=== PATIENT | male | born 1950 | race Caucasian/White ===

== ENCOUNTER 2016-03-09 23:26 | Inpatient (IN) | payer MEDICARE ==
[~2016-03-09] VITALS: Ht 177.8 cm; Wt 126.4 kg
[2016-03-10] VITALS (18 sets, daily range): BP systolic 108–140; BP diastolic 72–99; Ht 177.8 cm; Wt 126.4 kg
[2016-03-10 00:48] LABS: HEMOGLOBIN 12.8 g/dL (13.5-17.5); MCH 27.6 pg (26.0-34.0); MCHC 31.2 g/dL (31.0-37.0); MCV 88.4 fL (80.0-100.0); MEAN PLATELET VOLUME 10.4 fL (7.4-10.4); PLATELET COUNT 315 10x3/uL (130-400); RBC 4.64 10x6/uL (4.20-6.10); RDW 17.5 % (11.5-14.5); WBC 27.4 10x3/uL (4.8-10.8)
[2016-03-10 01:03] LABS: APPEARANCE TURBID (CLEAR); BILIRUBIN NEGATIVE (NEGATIVE); COLOR YELLOW (YELLOW); GLUCOSE NEGATIVE (NEGATIVE); KETONE NEGATIVE (NEGATIVE); LEUKOCYTE ESTERASE 2+ (NEGATIVE); NITRITE NEGATIVE (NEGATIVE); PROTEIN 2+ mg/dL (NEGATIVE); SPECIFIC GRAVITY 1.015 (1.005-1.020); UROBILINOGEN NORMAL (NORMAL)
[2016-03-10 01:11] LABS: ALBUMIN 2.2 g/dL (3.4-5.0); ANION GAP 10.9 mmol/L (8-16); BILIRUBIN - TOTAL 0.67 mg/dL (0.2-1.3); CARBON DIOXIDE 30.4 mmol/L (21.0-32.0); CREATININE - SERUM 1.6 mg/dL (0.6-1.3); MAGNESIUM - SERUM 1.2 mg/dL (1.8-2.4); POTASSIUM - SERUM 4.3 mmol/L (3.5-5.1); PROTEIN - SERUM 6.7 g/dL (6.4-8.2); TROPONIN-I 0.029 ng/mL (0.000-0.060)
[2016-03-10 01:12] LABS: UDS - AMPHET NEGATIVE QUAL (NEGATIVE); UDS - BARB NEGATIVE QUAL (NEGATIVE); UDS - BENZO NEGATIVE QUAL (NEGATIVE); UDS - COCAINE NEGATIVE QUAL (NEGATIVE); UDS - METH NEGATIVE QUAL (NEGATIVE); UDS - OPIATE NEGATIVE QUAL (NEGATIVE); UDS - PCP NEGATIVE QUAL (NEGATIVE); UDS - THC NEGATIVE QUAL (NEGATIVE)
[2016-03-10 01:15] LABS: BACTERIA MANY /hpf (NONE SEEN); WHITE CELLS - URINE >50 /hpf (0-5)
[2016-03-10 01:16] LABS: GRANULAR CAST 0-5 /lpf (NONE SEEN); HYALINE CAST OCC /lpf (NONE SEEN)
[2016-03-10 01:18] LABS: CALCIUM 12.8 mg/dL (8.5-10.1)
[2016-03-10 01:26] LABS: LYMPHOCYTES 8 % (15-50); MONOCYTES 4 % (2-11); NEUTROPHILS 78 % (40-80); PLATELET ESTIMATE NORMAL
[2016-03-10] MEDS ORDERED: KLOR-CON M2020 MEQ PO (02:37)
[2016-03-10] MEDS ORDERED: DEMADEX20 MG PO (02:37)
[2016-03-10] MEDS ORDERED: ZYLOPRIM100 MG PO (02:38)
[2016-03-10] MEDS ORDERED: CARAFATE1 G PO (02:39)
[2016-03-10] MEDS ORDERED: NUEDEXTA 20-101 EACH PO (02:40)
[2016-03-10] MEDS ORDERED: LIPITOR10 MG PO (02:40)
[2016-03-10] MEDS ORDERED: PAXIL20 MG PO (02:41)
[2016-03-10] MEDS ORDERED: ROZEREM8 MG PO (02:41)
[2016-03-10] MEDS ORDERED: PROTONIX40 MG PO (02:42)
[2016-03-10] MEDS ORDERED: MAG-OX 400 MG400 MG PO (02:42)
[2016-03-10] MEDS ORDERED: MULTIPLE VITAMI1 TA1 PO (02:43)
[2016-03-10] MEDS ORDERED: VITAMIN D31000 UNI2 PO (02:43)
[2016-03-10] MEDS ORDERED: VITAMIN B COMPL1 TAB PO (02:43)
[2016-03-10] MEDS ORDERED: ACIDOPHILUS LAC1 CAP PO (02:44)
[2016-03-10] MEDS ORDERED: NATURAL FIBER283 G1 PO (02:44)
[2016-03-10] MEDS ORDERED: ULTRAM50 MG PO (02:45)
[2016-03-10] MEDS ORDERED: GLUCOPHAGE500 MG PO (02:45)
[2016-03-10] MEDS ORDERED: IPRAT-ALBUT 0.5-3 ML UPD (02:46)
--- NOTE | 2016-03-10 03:09 | NUR ---
PT RECIEVED. ASSESSMENT COMPLET EPER FLOW SHEET. VSS. REPOSITIONED UP IN BED PARTIAL BB ADM WILL CONTINUE TO MONITOR
--- NOTE | 2016-03-10 03:10 | NUR ---
INVESTIGATION CLERK PAGED TO RETRIEVE MEDICATIONS FROM [facility]. WILL CONTINUE TO MONITOR.
--- NOTE | 2016-03-10 05:19 | NUR ---
PT AWAKE ASKS WHERE HE IS REORIENTED THINKS ITS 1995, REORIENTED STATES UNDERSTANDING, FOLLOWS COMMANDS NO FURTHER NEW ASSESSMENTS NOTED.
--- NOTE | 2016-03-10 11:44 | NUR ---
0700 PT AWAKE ALERT AND DISORIENTED TO TIME. PT DENIES PAIN. ABLE TO OBEY COMMANDS. S1S2 NOTED, NORMAL SINUS ON MONITOR. ABDOMEN DISTENDED AND ROUND, NO BM AT THIS TIME. DUARTE CATHETER IN PLACE AND DRAINING TO GRAVITY. BILAT FEET DARK PIGMENTATION. SCDS ON LOWER EXTREMITIES BILAT. WEAKNESS IN EXTREMITIES X4. VITAL SIGNS STABLE AT THIS TIME. WILL CONTINUE TO MONITOR
--- NOTE | 2016-03-10 11:47 | NUR ---
0900 PT ABLE TO SWALLOW PO MEDS WITH SIPS OF WATER. WILL CALL TO POSSIBLY ADVANCE DIET TODAY. NO FURTHER CHANGES
--- NOTE | 2016-03-10 11:48 | NUR ---
1100 PT ABLE TO TALK AND ANSWER QUESTION. LOC APPEARS TO BE IMPROVING. WILL CONTINUE TO MONITOR AND ORIENT NEEDED.
--- NOTE | 2016-03-10 17:52 | NUR ---
1300 NO CHANGES FROM PREVIOUS ASSESSMENT. WILL CONTINUE TO MONITOR.
--- NOTE | 2016-03-10 18:17 | NUR ---
1500 PT ASLEEP AT THIS TIME. VITAL SIGNS STABLE. PACS AND PVCS NOTED ON MONITOR, SINUS RHYTHM. P WAVES NOTED.
--- NOTE | 2016-03-10 18:18 | NUR ---
1700 PT ALTERED LOC. NOT SPEAKING AT THIS TIME. NEURO CHECK COMPLETED. D DIMER ORDERED. FSBS CHECKED AND STABLE. NO DISTINGUISHABLE WEAKNESS NOTED IN EITHER SIDE.
--- NOTE | 2016-03-10 18:21 | NUR ---
1715 PT TALKING NOW AND ABLE TO FORM SENTENCES. APPEARS UPSET AND ANGRY BUT NOT COMBATIVE. DR LEIJA CALLED WITH RESULTS OF D DIMER. WILL HOLD OVERNIGHT AND REASSESS IN THE MORNING.
--- NOTE | 2016-03-10 19:15 | NUR ---
ASSESSMENT COMPLETE. S1S2. RR SHALLOW [place]NEA. RR CLEAR IN UPPER LOBES; DIMINISHED IN LOWER LOBES. PT CONFUSED; ORIENTED TO PERSON AND PLACE. DRY/CRACKING WITH DARK DISCOLORATION BILATERAL FEET. ON NC AT 2L. PERRLA; 3MM BRISK.
--- NOTE | 2016-03-10 20:25 | NUR ---
SPOKE WITH DR. LEIJA. ORDERS FOR TRANSFER.
--- NOTE | 2016-03-10 20:45 | NUR ---
COMPLETE BATH. COMPLETE LINEN CHANGE. PT RDY TO TRANSFER TO FLOOR.
--- NOTE | 2016-03-10 21:25 | NUR ---
RECEIVED TO ROOM 2226 AT THIS TIME. TRANSFERRED TO BED WITH BRIAN MAT ALARM IN PLACE AND IN WORKING ORDER. DUARTE CATHETER PATENT AND DRAINING CLEAR, YELLOW URINE TO GRAVITY. TEMP 98.4, BP 136/93, HR 102, O2 94% ON 2L VIA NC, AND RESPIRATIONS 21 EVEN AND NON LABORED. PT REMAINS CONFUSED, BUT PLEASANT. CALL LIGHT IN REACH, WILL CONTINUE WITH PLAN OF CARE.
[2016-03-11] VITALS: BP 131/76
--- NOTE | 2016-03-11 00:49 | NUR ---
SCHEDULED MEDICATIONS ADMINISTERED AT THIS TIME. PT REMAINS CONFUSED TO PLACE, TIME AND SITUATION. IV TO LEFT HAND PATENT AND PT ASSISTED WITH DRINK OF ICE WATER. BRIAN MAT ALARM ON AND IN USE. DOOR OPEN AND SCD'S ON AND IN WORKING ORDER.
[2016-03-11 04:00] VITALS: BP 134/65
--- NOTE | 2016-03-11 05:03 | NUR ---
SCHEDULED MEDICATIONS ADMINISTERED AT THIS TIME. PT REPOSITIONED ON LEFT SIDE IN THE BED AT THIS TIME. PROVIDED PT WITH CUP ICE WATER WHICH HE FINISHED AT THIS TIME. CALL LIGHT IN REACH, SCD'S AND BRIAN MAT ALARM IN USE. DUARTE CARE PROVIDED WITH SOAP AND WATER. WILL CONTINUE WITH PLAN OF CARE.
[2016-03-11 05:50] LABS: BASOPHILS 0.1 % (0.0-2.0); EOSINOPHILS 0 % (0-7); HEMATOCRIT 35.5 % (42.0-54.0); IMMATURE GRANULOCYTES 0.5 % (0-5); LYMPHOCYTES 2.3 % (15-50); MCH 27.3 pg (26.0-34.0); MCV 88.1 fL (80.0-100.0); MEAN PLATELET VOLUME 10.4 fL (7.4-10.4); NEUTROPHILS 94.1 % (40-80); PLATELET COUNT 283 10x3/uL (130-400); RBC 4.03 10x6/uL (4.20-6.10); RDW 17.5 % (11.5-14.5)
[2016-03-11 05:56] LABS: WBC 19.6 10x3/uL (4.8-10.8)
[2016-03-11 06:01] LABS: HEMOGLOBIN A1C 5.4 % (4.8-6.0)
[2016-03-11 06:15] LABS: ALBUMIN 1.8 g/dL (3.4-5.0); BILIRUBIN - TOTAL 0.33 mg/dL (0.2-1.3); CARBON DIOXIDE 28.7 mmol/L (21.0-32.0); CHOL - HDL RATIO 7.7 ratio (2.3-4.9); CREATININE - SERUM 1.2 mg/dL (0.6-1.3); LDL-HDL RATIO 4.8 ratio (1.5-3.5); MAGNESIUM - SERUM 1.3 mg/dL (1.8-2.4); PHOSPHOROUS 2.6 mg/dL (2.5-4.9); POTASSIUM - SERUM 3.7 mmol/L (3.5-5.1); THYROID STIMULATING HORMONE 0.35 uIU/mL (0.36-3.74); URIC ACID 8.8 mg/dL (2.6-7.2)
[2016-03-11 06:16] LABS: CALCIUM 12.1 mg/dL (8.5-10.1)
[2016-03-11 08:30] VITALS: BP 138/79
--- NOTE | 2016-03-11 10:08 | NUR ---
Patient Name: PATEL JACOBO Admission Status: ER Accout number: [id number] Admission Date: 03-10-2016 : 1950 Admission Diagnosis: Attending: IOANA Current LOS: 1 Anticipated DC Date: Planned Disposition: Primary Insurance: [employer] CHOICE PPO MCR ADVANT Discharge Planning Comments: CM CALLED [facility] TO DISCUSS PATIENTS PLANS AND NEEDS FOR DISCHARGE. PATIENT IS UNDER APS AT THIS TIME. PATIENT IS BEDRIDDEN PER FACILITY. PATIENTS PCP IS DR. LEIJA AND PHARMACY IS IN HOUSE. PATIENT WILL RETURN TO [facility] AT DISCHARGE. CM WILL CONTINUE TO FOLLOW PATIENT WITH D/C NEEDS AND PLANS. PCP DR. LEIJA PHARMACY IS IN HOUSE AT [facility] [phone] Consumer Studies Professor: Brianna Mota Is the patient Alert and Oriented? No 0 * PCP DR. NAPIER 0 * Pharmacy IN HOUSE AT [facility] 0 * Preadmission Environment Sales Development Representative Intermediate 0 * Facility Name [facility] 0 * ADLs Total Dependent 0 * Other Equipment FACILITY HAS EQUIPMENT NEEDED 0 * Community resources currently utilized APS/CPS 0 * Please name any agencies selected above. [phone] * Additional services required to return to the preadmission environment? Yes 0 * Can the patient safely return to the preadmission environment? Yes 0 * Has this patient been hospitalized within the prior 30 days at any hospital? No 0 Grand Total: 0
--- NOTE | 2016-03-11 11:00 | NUR ---
Received patient lying in bed, awake to call of name, oriented to name. Oxygen in place and respirations easy. IV left hand patent. No distress. Assessment complete.
[2016-03-11 11:52] VITALS: BP 112/49
--- NOTE | 2016-03-11 13:19 | NUR ---
D/C REASSESSMENT NOTE: THE PATIENT IS IN APS AND THE PERSON TO NOTIFY IS [facility] AT [phone]
--- NOTE | 2016-03-11 13:44 | NUR ---
Resting quietly repositioned in bed, oxygen in place, bed alarm in place.
--- NOTE | 2016-03-11 15:40 | NUR ---
Tech reported heart rate of 44, called youth nutritional monitor with confirmed heart rate of 65. Patient resting quietly and arouses easily to touch.
[2016-03-11 15:55] VITALS: BP 111/69
--- NOTE | 2016-03-11 20:30 | NUR ---
ASSESSMENT COMPLETED, NO ACUTE DISTRESS NOTED, BED ALARM IN PLACE, SR'S UP X2, CL IN REACH, DOOR OPEN FOR EASY MONITORING, DENIES NEEDS AT THIS TIME, WILL MONITOR
[2016-03-11 21:18] VITALS: BP 132/66
--- NOTE | 2016-03-11 22:16 | NUR ---
MEDS GIVEN PER MAR, DIANN WELL, HOB ELEVATED, SR'S UP X2,CL IN REACH
--- NOTE | 2016-03-12 02:07 | NUR ---
MEDS GIVEN PER MAR, DIANN WELL, SAFETY PRECAUTIONS IN PLACE, CL IN REACH
--- NOTE | 2016-03-12 05:51 | NUR ---
MEDS GIVEN PER MAR, DIANN WELL, FALL PRECAUTIONS IN PLACE, CL IN REACH
[2016-03-12 05:56] LABS: BASOPHILS 0.1 % (0.0-2.0); EOSINOPHILS 0 % (0-7); HEMATOCRIT 38.6 % (42.0-54.0); IMMATURE GRANULOCYTES 0.5 % (0-5); MCH 27.3 pg (26.0-34.0); MCHC 31.1 g/dL (31.0-37.0); MCV 87.7 fL (80.0-100.0); MEAN PLATELET VOLUME 10.9 fL (7.4-10.4); MONOCYTES 2.8 % (2-11); NEUTROPHILS 93.6 % (40-80); RDW 17.4 % (11.5-14.5); WBC 16.9 10x3/uL (4.8-10.8)
[2016-03-12 06:15] LABS: PLATELET COUNT 342 10x3/uL (130-400)
[2016-03-12 06:29] LABS: ANION GAP 11.2 mmol/L (8-16); CALCIUM 11.6 mg/dL (8.5-10.1); CARBON DIOXIDE 27.4 mmol/L (21.0-32.0); CREATININE - SERUM 1.1 mg/dL (0.6-1.3); MAGNESIUM - SERUM 1.4 mg/dL (1.8-2.4); PHOSPHOROUS 2.2 mg/dL (2.5-4.9); POTASSIUM - SERUM 3.6 mmol/L (3.5-5.1)
[2016-03-12 08:19] VITALS: BP 151/88
[2016-03-12 12:27] VITALS: BP 142/76
--- NOTE | 2016-03-12 12:50 | NUR ---
A LADY BY THE NAME OF GINI CALL FROM THE DEPARTMENT OF HUMAN SERVICES AND LEFT HER CELL NUMBER [phone] AND OFFICE NUMBER OF [phone] AND STATED THAT IF WE NEEDED CONSENTS FOR ANYTHING TO HAVE HER A CALL. IF IT HAPPENS TO BE AFTER 430PM TO CALL THE HOTLINE.
[2016-03-12 16:18] VITALS: BP 146/68
--- NOTE | 2016-03-12 18:00 | NUR ---
ROTATED PATIENT. REPOSTIONED TO BED DINNER. BED LOW CALL LIGHT IN REACH. REMAINS AT BASELINE
[2016-03-12 19:00] VITALS: BP 94/40
--- NOTE | 2016-03-12 20:20 | NUR ---
RESTING WITH EYES CLOSED, SNORING RESP, ASSESSMENT COMPLETED, NO ACUTE DISTRESS NOTED, SCD'S AND NC IN PLACE, DUARTE DRAINING TO GRAVITY, BED ALARM ON ,REPOSITIONED IN BED, SR'S UP X2, CL IN REACH, WILL MONITOR
--- NOTE | 2016-03-12 21:55 | NUR ---
MEDS GIVEN PER MAR, REPOSITIONED IN BED, DIANN WELL, SAFETY MEASURES IN PLACE, CL IN REACH
[2016-03-13] VITALS: BP 118/61
--- NOTE | 2016-03-13 01:37 | NUR ---
CONTINUES TO REST WITH EYES CLOSED, SNORING RESP, NC IN PLACE, SR'S UP X2, CL IN REACH
--- NOTE | 2016-03-13 03:30 | NUR ---
REPOSITIONED IN BED, DIANN WELL, NO DISTRESS NOTED, FALL PRECAUTIONS IN PLACE, CL IN REACH
[2016-03-13 04:00] VITALS: BP 105/68
[2016-03-13 05:26] LABS: BASOPHILS 0.1 % (0.0-2.0); EOSINOPHILS 0.1 % (0-7); HEMATOCRIT 39.8 % (42.0-54.0); IMMATURE GRANULOCYTES 1.1 % (0-5); LYMPHOCYTES 3.3 % (15-50); MCH 27.1 pg (26.0-34.0); MCHC 30.2 g/dL (31.0-37.0); MEAN PLATELET VOLUME 11.2 fL (7.4-10.4); MONOCYTES 6.7 % (2-11); NEUTROPHILS 88.7 % (40-80); PLATELET COUNT 321 10x3/uL (130-400); RBC 4.43 10x6/uL (4.20-6.10); RDW 17.2 % (11.5-14.5); WBC 14.4 10x3/uL (4.8-10.8)
--- NOTE | 2016-03-13 05:43 | NUR ---
MEDS GIVEN PER MAR, DIANN WELL, NO DISTRESS NOTED, DUARTE DRAINING, CL IN REACH
[2016-03-13 05:51] LABS: ANION GAP 7.3 mmol/L (8-16); CALCIUM 11.9 mg/dL (8.5-10.1); CARBON DIOXIDE 31.3 mmol/L (21.0-32.0); CREATININE - SERUM 1.1 mg/dL (0.6-1.3); MAGNESIUM - SERUM 1.6 mg/dL (1.8-2.4); POTASSIUM - SERUM 3.6 mmol/L (3.5-5.1)
[2016-03-13 06:02] LABS: PHOSPHOROUS 3.6 mg/dL (2.5-4.9)
[2016-03-13 06:05] LABS: MCV 89.8 fL (80.0-100.0)
--- NOTE | 2016-03-13 07:55 | NUR ---
SLEEPING QUIETLY AT PRESENT RESP EVEN AND UNLABORED AT PRESENT DENIES ANY NEEDS AT PRESENT.
[2016-03-13 07:57] VITALS: BP 126/80
--- NOTE | 2016-03-13 09:30 | NUR ---
MEDS GIVEN WITH H2O REPOSITIONED IN BED AT PRESENT.
--- NOTE | 2016-03-13 11:43 | NUR ---
REPOSITIONED IN BED DUARTE CATH INTACT ANDDRAINING YELLOW URINE.
[2016-03-13 12:31] VITALS: BP 117/61
--- NOTE | 2016-03-13 13:24 | NUR ---
NUTRITION MONITORING & EVAL CHART REVIEWED. PT REMAINS IN ISOLATION. ~50% INTAKE MEALS. REG MECH SOFT DIET. RD FOLLOWING
[2016-03-13 15:57] VITALS: BP 123/69
--- NOTE | 2016-03-13 16:15 | NUR ---
QUIET IN ROOM N/C VOICED AT PRESENT RESTING QUIETLY.
--- NOTE | 2016-03-13 17:58 | NUR ---
STATUS REMAINS UNCHGD AT PRESENT DENIES ANY NEEDS AT THIS TIME.
--- NOTE | 2016-03-13 18:01 | NUR ---
STATUS REMAINS UNCHGD AT PRESENT N/C VOICED AT PRESENT IV CONT TO RFA AT PRESENT N/C VOICED AT PRESENT.
[2016-03-13 19:00] VITALS: BP 116/62
[2016-03-14] VITALS: BP 121/54
[2016-03-14 04:00] VITALS: BP 99/54
--- NOTE | 2016-03-14 04:11 | NUR ---
CONTACT ISOLATION FOR SEPSIS. PT RESTING QUIETLY AT THIS TIME. APPEARS TO BE TALKING IN HIS SLEEP. NO DISTRESS NOTED.
--- NOTE | 2016-03-14 07:30 | NUR ---
AWAKE ALERT COLOR ADQ SKIN WARM AND DRT RESP EVEN AND UNLABORED AT PRESENT 02 OF AT PRESENT I PTS HAND ENCOURGED TO PUT BACK ON AT PRESENT.
[2016-03-14 07:41] VITALS: BP 142/77
--- NOTE | 2016-03-14 08:56 | NUR ---
MEDS GIVEN DIANN WELL AT PRESENT TELEMTRY IN PLACE AT PRESENT IV CONT AT 50CC/HR/IVAC/RFA AT PRESENT. CONT CONFUSHED.
[2016-03-14 09:07] LABS: BASOPHILS 0.1 % (0.0-2.0); EOSINOPHILS 3.2 % (0-7); HEMATOCRIT 40.8 % (42.0-54.0); HEMOGLOBIN 12.7 g/dL (13.5-17.5); IMMATURE GRANULOCYTES 2.2 % (0-5); LYMPHOCYTES 4.2 % (15-50); MCH 27.9 pg (26.0-34.0); MCHC 31.1 g/dL (31.0-37.0); MCV 89.5 fL (80.0-100.0); MEAN PLATELET VOLUME 10.7 fL (7.4-10.4); MONOCYTES 4.5 % (2-11); NEUTROPHILS 85.8 % (40-80); PLATELET COUNT 327 10x3/uL (130-400); RBC 4.56 10x6/uL (4.20-6.10); RDW 17.7 % (11.5-14.5)
[2016-03-14 09:14] LABS: CALC OSMOLALITY 298 mosm/kg (275-300); CALCIUM 11.8 mg/dL (8.5-10.1); CARBON DIOXIDE 30.6 mmol/L (21.0-32.0); CHLORIDE - SERUM 111 mmol/L (98-107); CREATININE - SERUM 0.8 mg/dL (0.6-1.3); GLUCOSE 72 mg/dL (74-106); POTASSIUM - SERUM 3.9 mmol/L (3.5-5.1); SODIUM 147 mmol/L (136-145); UREA NITROGEN 36 mg/dL (7-18); eGFR NON AFRICAN AMERICAN > 90 mL/min (90-120)
--- NOTE | 2016-03-14 12:00 | NUR ---
INCONT OF STOOL AT PRESENT LARGE AMT OF FORMED STOOL NOTED AT PRESENT.
--- NOTE | 2016-03-14 12:00 | NUR ---
REFUSES TO EAT LUNCH AT PRESENT.
[2016-03-14 12:20] VITALS: BP 131/62
--- NOTE | 2016-03-14 13:30 | NUR ---
AWAKE HOLLERING OUT IN ROOM AT [facility] CONT CONFUSED AT PRESENT.
--- NOTE | 2016-03-14 15:48 | NUR ---
SLEEPING QUIETL AT PRESENT DENIES ANY NEEDS AT PRESENT.
[2016-03-14 15:51] VITALS: BP 144/72
[2016-03-14 19:00] VITALS: BP 128/63
[2016-03-15] VITALS: BP 109/61
--- NOTE | 2016-03-15 03:33 | NUR ---
PT REMAINS IN ISOLATION AND IS AT THIS TIME AWAKE CALLING OUT FOR VARIOUS THINGS. HE IS CONFUSED AND DOES THIS OFTEN. HIS BED IS LOW, RAILS UP X'S 3 WITH THE CALL LIGHT AT HAND AND A BED ALARM IN PLACE. NO RESPIRATORY PROBLEMS NOTED OR DISTRESS.
[2016-03-15 04:00] VITALS: BP 122/58
--- NOTE | 2016-03-15 07:00 | NUR ---
PT REC'D FROM [facility]. RESTING IN BED WITH EYES CLOSED. RESP EVEN AND UNLABORED. NO SIGNS OF DISTRESS. BED LOW, CALL LIGHT IN REACH, WILL CONTINUE TO MONITOR.
--- NOTE | 2016-03-15 07:42 | NUR ---
ALERTED BY PHLEBO. THAT PT WAS REFUSING BLOOD DRAW. ENTERED ROOM TO TRY AND COVINCE PT TO LET BLOOD BE DRAWN FOR LABS. PT REFUSED AND STATED HE WAS GOING HOME TODAY. ATTEMPTS TO TALK PT INTO LETTING BLOOD BE DRAWN UNSUCCESSFUL.
--- NOTE | 2016-03-15 09:23 | NUR ---
MORNING MEDS PASSED. ATTEMPTED TO GIVE MEDS WHOLE, BUT PT REFUSED. CRUSHED MEDS AND PUT THEM IN PUDDING, BUT PT STILL REFUSED. TO EAT. REFUSED BREAKFAST TRAY AND MORNING VITALS. PT THINKS HE IS GOING HOME. WHILE IN ROOM PULLED OFF TELEMETRY STICKERS. WHEN TRIED TO PUT BACK ON AND EXPLAIN THAT IT WAS HIS HEART MONITOR HE SAID IT WAS NOT HIS AND HE WAS GOING TO WEAR IT. ATTEMPTS OF CHANGE MIND UNSUCCESSFUL. PT AAOX0. 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 ATTEMPTS TO REORIENT UNSUCCESSFUL. PT HAS TAKEN OFF O2 AND REFUSES TO WEAR IT. LUNG SOUNDS CLEAR AND EQUAL BILAT. ABD ROUND, BOWEL SOUNDS ACTIVE, FIRM TO PALPATION WITH LUMP IN BETWEEN RLQ AND LLQ. LE PURPLE WITH YELLOW, DRY, PATCHES BILATERALLY. PALPABLE PEDAL PULSES. BED LOW, CALL LIGHT IN REACH, CPOC.
--- NOTE | 2016-03-15 10:30 | NUR ---
PARTIAL BB GIVEN. PT HAD 1 SMALL BM THAT WAS STICKY AND LUZ ELENA COLORED WITH SOME FORMED PIECES. PT HAS 3 SORES TO BUTTOCK. ONE TO OUTTER R BUTTOCK, NEXT TO ANUS, AND TO L BUTTOCK. PT REPOSITIONED IN BED TO L SIDE. PT ALLOWED VITAL TO BE TAKEN AND FOR TELEMETRY TO BE REAPPLIED. ICE WATER PROVIDED. BED LOW, CALL LIGHT IN REACH, WILL CPOC.
[2016-03-15 12:00] VITALS: BP 127/85
[2016-03-15 15:37] VITALS: BP 102/68
--- NOTE | 2016-03-15 19:57 | NUR ---
REC'D IN BED ALERT TO SELF. RESP EVEN AND UNLABORED WITH NO DISTRESS NOTED. CAN VOICE SOME NEEDS NAD WANTS. TURN AND REPOSITIONED Q 2 HRS FOR COMFORT AND TO PREVENT ANY SKIN ISSUES. ASSESSMENT COMPLETED. C/L IN REACH AT BEDSIDE.
[2016-03-15 20:43] VITALS: BP 139/74
--- NOTE | 2016-03-16 02:05 | NUR ---
RESTING WITH EYES CLOSED, RESP WITH EASE, NO ACUTE DISTRESS NOTED, SR'S UP X2, CL IN REACH
--- NOTE | 2016-03-16 03:23 | NUR ---
RESTING WELL AT THIS TIME NO C/O NOTED OR VOICED. C/L IN REACH AT BEDSIDE.
[2016-03-16 06:17] LABS: BASOPHILS 0.1 % (0.0-2.0); EOSINOPHILS 5.6 % (0-7); HEMATOCRIT 37.8 % (42.0-54.0); HEMOGLOBIN 11.4 g/dL (13.5-17.5); IMMATURE GRANULOCYTES 3.3 % (0-5); LYMPHOCYTES 9.1 % (15-50); MCH 27.2 pg (26.0-34.0); MCHC 30.2 g/dL (31.0-37.0); MCV 90.2 fL (80.0-100.0); MEAN PLATELET VOLUME 10.8 fL (7.4-10.4); MONOCYTES 6.4 % (2-11); NEUTROPHILS 75.5 % (40-80); PLATELET COUNT 324 10x3/uL (130-400); RBC 4.19 10x6/uL (4.20-6.10); RDW 18.3 % (11.5-14.5); WBC 10.6 10x3/uL (4.8-10.8)
[2016-03-16 06:40] LABS: CALC OSMOLALITY 293 mosm/kg (275-300); CALCIUM 10.4 mg/dL (8.5-10.1); CARBON DIOXIDE 30.1 mmol/L (21.0-32.0); CHLORIDE - SERUM 111 mmol/L (98-107); CREATININE - SERUM 0.7 mg/dL (0.6-1.3); GLUCOSE 75 mg/dL (74-106); POTASSIUM - SERUM 3.6 mmol/L (3.5-5.1); SODIUM 147 mmol/L (136-145); eGFR NON AFRICAN AMERICAN > 90 mL/min (90-120)
[2016-03-16 06:42] LABS: UREA NITROGEN 21 mg/dL (7-18)
--- NOTE | 2016-03-16 07:00 | NUR ---
PT REC'D FROM [facility]. PT RESTING IN BED WITH EYES CLOSED. NO SIGNS OF DISTRESS. RESP EVEN AND UNLABORED. BED LOW, CALL LIGHT IN REACH, WILL CPOC.
--- NOTE | 2016-03-16 07:40 | NUR ---
PATIENT IN MID PRICE POSITION RESTING WITH EYES CLOSED. RESPIRATIONS EVEN AND UNLABORED. SIDE RAILS UP X2. BED IN LOW POSITION. CALL LIGHT IN REACH.
[2016-03-16 08:04] VITALS: BP 115/55
--- NOTE | 2016-03-16 08:39 | NUR ---
MORNING MEDS PASSED. PT REPOSITIONED IN BED TO R SIDE. AAOX3, CONFUSED TO SITUATION, BUT EASILY REORIENTED. ABD ROUND, BOWEL SOUNDS ACTIVE AT ALL QUADRANTS, FIRM TO PALPATION WITH HARD SECTION BETWEEN RLQ AND LLQ. BILAT LE PURPLE FROM KNEES DOWN, GENERALIZED EDEMA, DRY FLAKING SKIN, AND SCD'S ON. TOOK PO MEDS EASILY, AND IV MAG STARTED DUE TO LOW MAG LEVEL. BED LOW, CALL LIGHT IN REACH, WILL CPOC.
--- NOTE | 2016-03-16 11:01 | NUR ---
COMPLETE BB AND LINEN CHANGED DONE DUE TO INCONT OF BOWEL. PT HAD LARGE BM THAT WAS NOT FORMED AND LUZ ELENA COLORED. BUTT PASTE APPLIED TO BUTTOCK AND TURNED TO LT SIDE TO RELIEVE PRESSURE FROM BACK. SCD'S ON, TELEMETRY REAPPLIED. 2ND BAG OF MAG STARTED. CALL LIGHT IN REACH, WILL CPOC.
[2016-03-16 11:56] VITALS: BP 120/67
--- NOTE | 2016-03-16 12:43 | NUR ---
PT REPOSITIONED TO R SIDE. 3RD BAG OF MAG STARTED. BED LOW, CALL LIGHT REACH, WILL CPOC.
--- NOTE | 2016-03-16 13:32 | NUR ---
PT CALLING OUT. ENTERED ROOM AND PT STATED HIS BOTTOM HURT. PT REPOSITIONED TO LT SIDE. BED LOW, CALL LIGHT IN REACH, WILL CPOC.
--- NOTE | 2016-03-16 14:28 | NUR ---
IV TO R FA DC DUE TO REDNESS, TENDERNESS, AND SWELLING. DRESSING APPLIED. TOLD PT WE WOULD HAVE TO GET A NEW ONE LATER, BUT PT IS REFUSING. PT ASKED WHY HE NEEDED IT AND I STATED SO YOU CAN GET YOUR MEDICINE TO GET BETTER AND GO HOME. PT STATED I AM HOME. ATTEMPTS TO REORIENT PT TO PLACE AND TIME UNSUCCESSFUL. THINKS IT 1972. WILL ATTEMPT IV STICK LATER.
[2016-03-16 15:59] VITALS: BP 123/70
--- NOTE | 2016-03-16 16:48 | NUR ---
ATTEMPTED TO RESITE IV TO L FA. PT JERKED WHEN STUCK AND THEN STATED THAT HE DID NOT WANT TO BE STUCK AGAIN. DEMETRICE RAHMAN, IN ROOM TO ATTEMPT TO RESITE NEW IV.
--- NOTE | 2016-03-16 17:25 | NUR ---
DR. NAPIER IN ROOM DISCUSSING PLAN OF CARE WITH PT. INFORMED THAT PT HAD NO IV ACCESS. PICC LINE PLACEMENT TOMORROW.
--- NOTE | 2016-03-16 18:02 | NUR ---
PRN ULTRAM GIVEN PER PT COMPLAINTS OF HEADACHE RATING 6/10. WILL REASSESS.
[2016-03-17 04:00] VITALS: BP 87/50
[2016-03-17] MEDS ORDERED: INVANZ 1 GM/NS 11 G1 IM (07:15)
[2016-03-17] MEDS ORDERED: XARELTO20 MG PO (07:16)
[2016-03-17] MEDS ORDERED: COREG12.5 MG PO (07:17)
[2016-03-17] MEDS ORDERED: K-DUR20 MEQ PO (07:18)
[2016-03-17] MEDS ORDERED: LASIX20 MG PO (07:18)
--- NOTE | 2016-03-17 07:30 | NUR ---
PT AWAKE AND YELLING ORIENTED X2 DISORENTED TO SITUATION. YELLING OUT INTO MIGUEL. WHEN ASKED WHAT HIS NEED WAS UNABLE TO THINK OF ANYTHING STATES I JUST HOLLER ALL DAY. DR LEIJA HERE AT THIS TIME DISCHARGE ORDERS ENTERED TO RETURN TO LONG-TERM TODAY.
[2016-03-17 08:18] VITALS: BP 127/73
[2016-03-17 11:49] VITALS: BP 130/70
--- NOTE | 2016-03-17 12:15 | NUR ---
PT AWAKE AND YELLING STILL AWAITING TRANSPORT FROM EMS TO CORRECTION LUNGS WITH DIMINISHED BASES NO ACUTE DISTRESS NOTED VOICES ALL NEEDS
--- NOTE | 2016-03-17 12:43 | NUR ---
REPORT CALLED TO [facility] SPOKE WITH MILEY FLORES. DISCHARGE MED LIST FAXED TO [phone] PER NURSE REQUEST AWAITING EMS TRANSPORT.
--- NOTE | 2016-03-17 13:17 | NUR ---
DISCHARGED AT [facility] TIME VIA EMS DUARTE IN PLACE NO DISTRESS NOTED
--- NOTE | 2016-03-21 11:11 | EC ---
PATIENT:PATEL JACOBO DATE OF SERVICE: 03/10/16 SEX: M MEDICAL RECORD: [id number] DATE OF : [birth year] LOCATION:[id number] AGE OF PATIENT: 66 ADMISSION DATE: 03/10/16 REFERRING PHYSICIAN: INTERPRETING PHYSICIAN: SOL TORRES MD ECHOCARDIOGRAM REPORT ECHO CHARGES 4 ECHO COMPLETE CLINICAL DIAGNOSIS: CHF ECHOCARDIOGRAPHIC MEASUREMENTS (adult normal given) AC root (d.<3.7cm) 3.4 LV Septum d (<1.2 cm> 1.4 Valve Excursion 2.0 LV Septum (systole) 1.6 Left Atria (s.<4.0cm> 3.6 LVPW d(<1.2cm) 1.3 RV (d.<2.3cm) 2.8 LVPW (sytole) 1.7 LV diastole(<5.6CM) 5.5 MV E-F(>70mm/sec) LV systole 4.3 LVOT Diameter 2.2 MV exc.(>10mm) Est.ejection fraction (50-75%) Pericardial Effusion N DOPPLER: LVIT A 82.0 E 52.0 LA RVSP 47.0 LVOT 82.0 AOP1/2T Asc. Ao 168 RVOT 79.0 RA PA 118 AV Gradient Peak 11.3 AV Mean 5.8 AV Area 1.6 MV Gradient Peak 2.8 MV Mean 1.1 MV Area COMMENTS: Preventative Maintenance Technician: Mikey WOODWARDOE Spouting Installer:1 Dr. Torres TAPE# PACS DATE OF SERVICE: 03/10/2016 Echocardiogram FINDINGS: 1. Left ventricle chamber size is mildly dilated. Left ventricular systolic function is markedly reduced. Overall ejection fraction is 20% to 25%. 2. Left atrium is within normal limits at 3.6 cm. Right atrium and right ventricular chamber sizes are moderately dilated. 3. Valvular structures: There is heavy calcification on the aortic valve, ECHOCARDIOGRAM REPORT [id number] PATEL JACOBO mostly aortic sclerosis with some mild aortic stenosis. Valve area calculates to 1.6 cm square and there is a gradient of 11 mm across the valve. The remaining valvular structures have normal structure and motion. 4. Doppler interrogation elsewise reveals moderate mitral regurgitation, mild tricuspid regurgitation, no other valvular insufficiency or stenosis. Pulmonary systolic pressure is estimated at 47 mmHg. 5. No evidence of vegetative endocarditis. 6. No evidence of left ventricular thrombus. TRANSINT:[id number] Voice Confirmation ID: [id number] DOCUMENT ID: [id number] 03/20/2016 Edited to correct date of service, [email or web address]. SOL TORRES MD at 1111 CC: [id number] DICTATION DATE: 03/11/16 0945 TAG CLERK: 03/11/16 1006 DIS IN 03/17/16 [place] [id number] [place] [id number]
== END 2016-03-17 13:17 | disposition home or self-care (01) | DRG 871 ==
LOC: EDSEX 23:26 → D.ER 23:26 → D.MS 03-10 01:41 → D.ICU 03-10 01:41 → D.MS 03-10 21:48
PROVIDERS: Emergency Medicine; ADMIT Family Medicine
DX: A41.51 Sepsis due to Escherichia coli [E. coli] (principal); I50.21 Acute systolic (congestive) heart failure; N39.0 Urinary tract infection, site not specified; N17.9 Acute kidney failure, unspecified; I42.9 Cardiomyopathy, unspecified; R65.20 Severe sepsis without septic shock; E83.52 Hypercalcemia; E83.42 Hypomagnesemia; J44.9 Chronic obstructive pulmonary disease, unspecified; F32.9 Major depressive disorder, single episode, unspecified; Z74.09 Other reduced mobility; E66.9 Obesity, unspecified; Z68.39 Body mass index [BMI] 39.0-39.9, adult; E78.5 Hyperlipidemia, unspecified; K59.00 Constipation, unspecified; F48.2 Pseudobulbar affect; E79.0 Hyperuricemia without signs of inflammatory arthritis and tophaceous disease; E05.90 Thyrotoxicosis, unspecified without thyrotoxic crisis or storm; E11.9 Type 2 diabetes mellitus without complications; I08.0 Rheumatic disorders of both mitral and aortic valves